=== PATIENT | male | born 1955 | race Caucasian/White ===

== ENCOUNTER 2020-04-13 07:03 | Outpatient (REF) | payer BC, SELFPAY ==
[2020-04-13 07:50] LABS: MANUAL DIFF FLAG NO
[2020-04-13 07:59] LABS: Basophils Percent Auto 0.6 % (0-2); Eosinophils Absolute Auto 0.1 X10*3/uL (0.0-0.4); Hematocrit 44.4 % (42-52); Hemoglobin 15.3 g/dl (14.0-18.0); Imm Gran Abs Auto 0.01 X10*3/uL (0.00-0.03); Imm Gran Pct Auto 0.2 % (0.0-0.4); Lymphocytes Absolute Auto 1.1 X10*3/uL (1.2-4.9); Lymphocytes Percent Auto 21.1 % (20-40); Mean Corpuscular HGB Conc 34.5 g/dl (31.0-36.0); Mean Corpuscular Hemoglobin 32.8 pg (27.0-33.0); Mean Corpuscular Volume 95.3 fL (80-98); Mean Platelet Volume 11.3 fL (9.4-12.4); Monocytes Absolute Auto 0.5 X10*3/uL (0.1-1.2); Monocytes Percent Auto 10.4 % (2-11); Neutrophils Absolute Auto 3.3 X10*3/uL (2.0-8.3); Neutrophils Percent Auto 65.7 % (45-73); Platelet Count 152 X10*3/uL (160-400); Red Blood Count 4.66 X10*6/uL (4.60-5.80); Red Cell Distribution Width 12.4 % (11.0-16.0); White Blood Count 5.1 X10*3/uL (4.8-10.8)
[2020-04-13 08:24] LABS: Alanine Aminotransferase 195 U/L (0-40); Albumin Level 4.3 g/dL (3.5-5.0); Alkaline Phosphatase 61 U/L (39-117); Anion Gap 12 (12-20); Aspartate Amino Transferase 110 U/L (5-37); Bilirubin Total 1.3 mg/dL (0.0-1.0); Blood Urea Nitrogen 21 mg/dL (9-16); Calcium 9.4 mg/dL (8.4-10.2); Carbon Dioxide 24 mmol/L (22-29); Chloride 109 mmol/L (96-108); Cholesterol 133 mg/dL; Estimated Glomerular Filt Rate > 60; Glucose Random 104 mg/dL (60-115); HDL Cholesterol 46 mg/dL; LDL Cholesterol Calculated 76 mg/dl; Potassium 4.7 mmol/l (3.3-5.1); Sodium 140 mmol/L (135-145); Total Protein 7.7 g/dL (6.5-8.0); Triglycerides 56 mg/dL
[2020-04-13 08:31] LABS: Estimated Average Glucose 94 mg/dL; Hemoglobin A1c % 4.9 %
[2020-04-13 08:46] LABS: Prostate Specific Antigen 2.39 ng/mL (<0.05-4.0); Thyroid Stimulating Hormone 0.67 mIU/mL (0.32-4.0)
[2020-04-13 18:02] LABS: T4 Thyroxine 10.6 ug/dL (4.5-12.0)
[2020-04-15 06:04] LABS: Folate 14.1 ng/mL (> or = 4.0); Vitamin B12 592 pg/mL (200-900)
== END 2020-04-13 07:04 | disposition home or self-care (01) ==
LOC: HO.LAB 07:03
PROVIDERS: PCP Internal Medicine; Visit Provider Internal Medicine
DX: Z00.00 Encounter for general adult medical examination without abnormal findings (principal); E66.9 Obesity, unspecified; I10 Essential (primary) hypertension; D12.6 Benign neoplasm of colon, unspecified; B18.2 Chronic viral hepatitis C; R73.01 Impaired fasting glucose; Z72.0 Tobacco use
CPT/HCPCS: 36415; 80053; 80061; 82607; 82746; 83036; 84153; 84436; 84443; 85025

== ENCOUNTER 2021-05-05 09:46 | Outpatient (REF) | payer BC, SELFPAY ==
--- NOTE | ~2021-05-05 | XR_ITS ---
EXAMINATION: XR LUMBOSACRAL SPINE CLINICAL INFORMATION: Low back pain COMPARISON: None TECHNIQUE: Three views of the lumbosacral spine. FINDINGS: 5 nonrib-bearing lumbar vertebral bodies are visualized. There is mild dextroscoliosis of the lumbar spine centered at L3. Also noted is minimal retrolisthesis of L2 on L3 and mild anterolisthesis of L3 on L4. Vertebral body heights are maintained throughout the lumbar spine. There is moderate narrowing of the L4/L5 and L5/S1 disc space heights. There are degenerative changes of the posterior elements of the lumbar spine. Sacroiliac joints are symmetric. Surgical clip projects over the left pelvis. Surgical clips of the right upper abdomen. XR/XR lumbar spine 2-3V IMPRESSION: Mild to moderate degenerative changes of the lumbar spine without compression deformity.
== END 2021-05-05 09:47 | disposition home or self-care (01) ==
LOC: HO.HMGCX 09:46
PROVIDERS: PCP Internal Medicine; Visit Provider Physician Assistant
DX: M54.50 Low back pain, unspecified (principal)
CPT/HCPCS: 72100

== ENCOUNTER 2021-07-15 07:37 | Day surgery (SDC) | payer BC, SELFPAY ==
--- NOTE | 2021-07-14 10:13 | P.CONAN_ITS ---
HPI - Anesthesia Eval Consult details Narrative: 65yo M for Colonoscopy PMFSH Active Problems Active Problems: All Active Problems (Updated 04/23/20 @ 10:14 by Tristian Smith MD) Chronic hepatitis C (Acute) Impaired glucose tolerance (Acute) Tobacco abuse (Acute) Hypertension (Acute) Obesity (BMI 30-39.9) (Acute) Past Medical History Medical History (Updated 04/23/20 @ 10:14 by Tristian Smith MD) Chronic hepatitis C Hypertension Impaired glucose tolerance Obesity (BMI 30-39.9) Tobacco abuse Tubular adenoma of colon Family History Family History (Updated 04/23/20 @ 06:23 by Lisa Melendrez [facility]) Father Lung cancer Mother Breast cancer Brother Substance abuse Surgical History Surgical History (Updated 04/22/20 @ 20:27 by Tristian Smith MD) H/O arthroscopy of right knee History of cholecystectomy Social History Social History Patient Tobacco Use Status: Never used Tobacco Use of substances other than those prescribed or required for medical reasons: No Advance Directives: No Advance Directives Information Provided: Yes Recently lost weight without trying: No Nutrition Risks: No Nutritional Risk Meds Allergies Allergy/AdvReac Type Severity Reaction Status Date / Time hydrochlorothiazide Allergy Unknown constipatio Verified 05/05/21 09:31 ns Home Medications Medication Instructions Recorded Confirmed Last Taken Type ibuprofen 200 mg 200 mg PO Q6H 04/23/20 05/05/21 Unknown History tablet (Advil) PRN Exam Exam Date and Time: July 14, 2021 1013 Assessment and Plan Assessment Anesthesia Assessment: Chart Reviewed
[2021-07-15 08:08] VITALS: BMI 37.6
[2021-07-15 08:26] VITALS: BP 136/86; PULSE 78; RESP 17; TEMP 36.7; O2SAT 97
[2021-07-15] MEDS: Lactated Ringers 1,000 ML 100 ML IVCONT (08:27)
--- NOTE | 2021-07-15 09:01 | MHC.SHP ---
Pre-Procedural Eval Section A Date of Service: 07/15/21 The patient is an INPATIENT: No Changes since office visit: No Cold of Flu in the past 2 weeks, No New Medical Problems, No Changes in Medication and No Patient answered all questions The History & Physical has been completed within 30 days and I have reviewed it.: Yes Section B Chief Complaint: Screening Allergies: Allergies Allergy/AdvReac Type Severity Reaction Status Date / Time hydrochlorothiazide Allergy Unknown constipatio Verified 05/05/21 09:31 ns Plan I have reviewed the history and physical and performed a pertinent physical examination on my patient. No changes have occurred unless specified.
--- NOTE | 2021-07-15 09:40 | PM.OP ---
Brief Operative Note Date of Service: 07/15/21 Pre-op diagnosis: screening Post-op diagnosis: same (colon polyp) Procedure: colonoscopy Surgeon: Uday Chen Anesthesia: MAC Was an Senior International Tax Manager used for this Procedure?: No Estimated blood loss (mL): 2.0 Pathology: other (polyp cecum) Condition: stable Disposition: PACU
[2021-07-15 09:42] VITALS: BP 105/73; PULSE 64; RESP 16; TEMP 36.7; O2SAT 95
[2021-07-15 09:57] VITALS: BP 123/76; PULSE 68; RESP 17; TEMP 36.7; O2SAT 97
--- NOTE | 2021-07-15 10:12 | OP_ITS ---
SURGEON: Uday Chen MD INDICATIONS: Colon cancer screening and prior history of adenomatous colon polyps. PREOPERATIVE DIAGNOSIS: POSTOPERATIVE DIAGNOSIS: PROCEDURE PERFORMED: ESTIMATED BLOOD LOSS: COMPLICATIONS: ANESTHESIA: ASSISTANTS: SPECIMENS: PROCEDURE: Colonoscopy to the terminal ileum with snare polypectomy. MEDICATIONS: Monitored anesthesia care. DESCRIPTION OF PROCEDURE: History and physical performed. The risks and benefits of the procedure were explained to the patient. Informed consent was obtained. The patient was placed in the left lateral decubitus position. A digital rectal exam was performed and was found to be normal. The Olympus pediatric video colonoscope was introduced into the rectum and advanced to the cecum without difficulty. The cecum was identified by transillumination, palpation, and identification of ileocecal valve. Examination was performed. The scope was removed. He tolerated the procedure well and was returned to recovery area in stable condition. FINDINGS: The terminal ileum was normal. The visualized colonic mucosa was normal. There was a large amount of liquid stool limiting sensitivity examination for detection of small polyps. This was washed and suctioned as best possible. A single polyp in the cecum measuring approximately 6 mm was removed with a cold snare and recovered via suction. No other polyps were identified. Retroflexed examination showed internal hemorrhoids. IMPRESSION: Colon polyp. RECOMMENDATION: Follow up the biopsy results. MD MAYANK Bernard/ANNABELLE / [id number]
== END 2021-07-15 10:30 | disposition home or self-care (01) ==
PROVIDERS: PCP Internal Medicine; Visit Provider Internal Medicine Gastroenterology
PROC: 0DJD8ZZ Inspection of Lower Intestinal Tract, Via Natural or Artificial Opening Endoscopic (ICD-10-PCS; CPT 45378; principal; 2021-07-15 09:10)
DX: Z12.11 Encounter for screening for malignant neoplasm of colon (principal); Z86.010 Personal history of colon polyps; D12.0 Benign neoplasm of cecum; K64.8 Other hemorrhoids; I10 Essential (primary) hypertension; B18.2 Chronic viral hepatitis C; Z79.899 Other long term (current) drug therapy; Z88.8 Allergy status to other drugs, medicaments and biological substances; Z90.49 Acquired absence of other specified parts of digestive tract; F17.290 Nicotine dependence, other tobacco product, uncomplicated
CPT/HCPCS: 45385; 88305

== ENCOUNTER 2022-06-25 05:58 | Outpatient (REF) | payer MEDICARE, SELFPAY ==
[2022-06-25 06:06] LABS: MANUAL DIFF FLAG NO
[2022-06-25 07:26] LABS: Basophils Percent Auto 0.6 % (0-2); Eosinophils Absolute Auto 0.1 X10*3/uL (0.0-0.4); Eosinophils Percent Auto 2.4 % (0-4); Hematocrit 42.7 % (42.0-52.0); Hemoglobin 14.8 g/dl (14.0-18.0); Imm Gran Abs Auto 0.01 X10*3/uL (0.00-0.03); Imm Gran Pct Auto 0.2 % (0.0-0.4); Lymphocytes Absolute Auto 0.9 X10*3/uL (1.2-4.9); Lymphocytes Percent Auto 17.6 % (20-40); Mean Corpuscular HGB Conc 34.7 g/dl (31.0-36.0); Mean Corpuscular Hemoglobin 32.1 pg (27.0-33.0); Mean Corpuscular Volume 92.6 fL (80.0-98.0); Mean Platelet Volume 11.3 fL (9.4-12.4); Monocytes Absolute Auto 0.5 X10*3/uL (0.1-1.2); Monocytes Percent Auto 9.6 % (2-11); Neutrophils Absolute Auto 3.5 x10*3/uL (2.0-8.3); Neutrophils Percent Auto 69.6 % (45-73); Platelet Count 155 X10*3/uL (160-400); Red Blood Count 4.61 X10*6/uL (4.60-5.80); Red Cell Distribution Width 12.7 % (11.0-16.0)
[2022-06-25 07:57] LABS: Estimated Average Glucose 88 mg/dL; Hemoglobin A1c % 4.7 %
[2022-06-25 08:09] LABS: Alanine Aminotransferase 145 U/L (0-40); Albumin Level 4.2 g/dL (3.5-5.0); Alkaline Phosphatase 65 U/L (39-117); Anion Gap 11 (12-20); Aspartate Amino Transferase 89 U/L (5-37); Bilirubin Total 1.2 mg/dL (0.0-1.0); Blood Urea Nitrogen 24 mg/dL (9-16); Calcium 9.6 mg/dL (8.4-10.2); Carbon Dioxide 24 mmol/L (22-29); Chloride 110 mmol/L (96-108); Cholesterol 164 mg/dL; Estimated Glomerular Filt Rate > 60; Glucose Random 106 mg/dL (60-115); HDL Cholesterol 56 mg/dL; LDL Cholesterol Calculated 94 mg/dl; Potassium 4.6 mmol/L (3.3-5.1); Prostate Specific Antigen Scr 3.82 ng/mL (<0.05-4.0); Sodium 140 mmol/L (135-145); Thyroid Stimulating Hormone 1.23 uIU/mL (0.32-4.0); Total Protein 7.4 g/dL (6.5-8.0); Triglycerides 71 mg/dL
[2022-06-25 08:25] LABS: Folate 8.6 ng/mL (> or = 4.0); Vitamin B12 517 pg/mL (200-900)
[2022-06-25 10:18] LABS: Free T4 (Free Thyroxine) 0.91 ng/dL (0.71-1.85)
[2022-06-26 13:59] LABS: HCV RNA PCR Qn 6.68 Log IU/mL (NOT DETECTED)
[2022-07-04 10:49] LABS: HCV Genotype LiPA 1b
== END 2022-06-25 05:59 | disposition home or self-care (01) ==
LOC: HO.LAB 05:58
PROVIDERS: PCP Internal Medicine; Visit Provider Internal Medicine
DX: Z12.5 Encounter for screening for malignant neoplasm of prostate (principal); I10 Essential (primary) hypertension; E78.00 Pure hypercholesterolemia, unspecified; R73.02 Impaired glucose tolerance (oral)
CPT/HCPCS: 36415; 80053; 80061; 82607; 82746; 83036; 84153; 84439; 84443; 85025; 87522; 87902

== ENCOUNTER 2023-08-18 10:02 | Outpatient (AMB) | payer MEDICARE, SELFPAY ==
[2023-08-18 10:36] VITALS: BP 140/78; PULSE 68; O2SAT 98; BMI 36.9
--- NOTE | 2023-08-18 10:36 | AM.OFFVISMDC ---
Intake Vital Signs 08/18/23 10:36 Height 5 ft 9 in Weight 250 lb BMI 36.9 BP 140/78 H Blood Pressure Location Lt brachial Position Sitting Pulse 68 Pulse Source Pulse Oximeter Pulse Oximetry (%) 98 Oxygen Delivery Method Room Air Intake Visit Reasons: physical Allergies hydrochlorothiazide Allergy (Unknown, Verified 08/18/23 10:37) constipations dexamethasone Adverse Reaction (Severe, Verified 08/18/23 10:37) blurred vision Medication List - Last Reconciled 08/18/23 by Tristian Smith MD ibuprofen (Advil) 200 mg PO Q6H PRN lisinopril 20 mg PO DAILY HPI physical HPI Details 67-year-old obese male smoker with hypertension impaired glucose tolerance chronic hepatitis-C last seen in February 2022. Patient's colonoscopy is up-to-date June 2021. Patient was seen by the nurse practitioner last year in July for annual well visit BP at home 131/77 OH 72 PFSH Medical History Chronic hepatitis C Hypertension Impaired glucose tolerance Obesity (BMI 30-39.9) Tobacco abuse Tubular adenoma of colon Surgical History H/O arthroscopy of right knee History of cholecystectomy Family History (Updated 08/18/23 @ 10:37 by Alyce Stein [facility]) Father Lung cancer Mother Breast cancer Brother Substance abuse Other Mental health disorder Social History (Updated 08/18/23 @ 10:55 by Tristian Smith MD) Housing: House Alcohol intake: former Comment: 1997 quit. Patient Tobacco Use Status: Current everyday Tobacco user Tobacco use type: Cigar Cigarettes Per Day: 2 e-Cigarette/Vaping Use: Never Used Second Hand Smoke Exposure: Yes Current occupational status: retired Cognitive needs: No Hearing needs: No Vision needs: Yes Questionnaire Medicare Wellness Checkup [age] What gender do you identify with?: male During the past 4 weeks, how much have you been bothered by emotional problems such as feeling anxious, depressed, irritable, sad or downhearted, and blue?: not at all During the past 4 weeks, has your physical & emotional health limited your social activities with family, friends, neighbors, or groups?: not at all During the past 4 weeks, how much bodily pain have you generally had?: moderate pain During the past 4 weeks, was someone available to help you if you needed & wanted help?: yes, as much as I wanted During the past 4 weeks, what was the hardest physical activity you could do for at least 2 minutes?: heavy Can you get to places out of walking distance without help? (For eg., can you travel alone on buses, taxis or drive your car?): Yes Can you go shopping for groceries or clothes without someone's help?: Yes Can you prepare your own meals?: Yes Can you do your housework without help?: Yes Because of any health problems, do you need the help of another person with your personal care needs such as eating, bathing, dressing or getting around the house?: No Can you handle your own money without help?: Yes During the past 4 weeks, how would you rate your health in general?: very good During the past 4 weeks how have things been going for you?: pretty well Are you having difficulties driving your car?: no Do you always fasten your seat belt when you are in a car?: yes, usually During past 4 weeks, have you been bothered by the following: never: Falling or dizzy when standing up, Sexual problems?, Trouble eating well?, Teeth or denture problems?, Problems using the telephone? and Tiredness or fatigue? Have you fallen 2 or more times in the past year?: No Are you afraid of falling?: No Are you a smoker?: yes, but I'm not ready to quit (Cigars) During the past 4 weeks, how many drinks of wine, beer, or other alcoholic beverages did you have?: no alcohol at all Do you exercise for about 20 minutes 3 or more times a week?: no, I usually do not exercise this much Have you been given information to help with the following?: no: Hazards in your house that might hurt you? and no: Keeping track of your medications? How often do you have trouble taking medicines the way you have been told to take them?: I always take medicine as prescribed How confident are you that you can control & manage most of your health problems?: very confident What is your race?: White PHQ-9 Over the last 2 weeks, how often have you been bothered by any of the following problems? 1. Little interest or pleasure in doing things: not at all 2. Feeling down, depressed, or hopeless: not at all 3. Trouble falling or staying asleep, or sleeping too much: not at all 4. Feeling tired or having little energy: not at all 5. Poor appetite or overeating: not at all 6. Feeling bad about yourself - or that you are a failure or have let yourself or your family down: not at all 7. Trouble concentrating on things, such as reading the newspaper or watching television: not at all 8. Moving or speaking so slowly that other people could have noticed. Or the opposite - being so fidgety or restless that you have been moving around a lot more than usual: not at all 9. Thoughts that you would be better off or of hurting yourself in some way: not at all Total score: 0 Depression Screening Interpretation: Negative Depression Screening Done: Yes [id number] - PHQ-9 Billing: Yes Source: Developed by Drs. Derick Wooten, Jennifer Xiao, Donell Vera and colleagues, with an educational claude from [facility]. Thrive Questionnaire Date Thrive assessed: 08/18/23 I am a: Patient What is your living situation today?: I have a steady place to live Within the past 12 months, did the food you bought not last and you didn't have the money to get more?: Never true Within the past 12 months, did you worry whether your food would run out before you got money to buy more?: Never true Do you have trouble paying for medicines?: No Do you have trouble getting transportation to medical appointments?: No Do you have trouble paying your heating and electricity bill?: No Do you have trouble taking care of your child, family member or friend?: No Do you have trouble with day-to-day activities such as bathing, preparing meals, shopping, managing finances, etc.?: No Are you currently unemployed and looking for a job?: No Are you interested in more education?: No Currently or been in a relationship where the following occur: no concerns reported THRIVE Score: 0 MIROSLAVA-7 AMB Questionnaire MIROSLAVA-7 Date MIROSLAVA - 7 assessed: 08/18/23 Feeling nervous, anxious, or on edge: 0 = Not at all Not being able to stop or control worryin = Not at all Worrying too much about different things: 0 = Not at all Trouble relaxin = Not at all Being so restless that it is hard to sit still: 0 = Not at all Becoming easily annoyed or irritable: 0 = Not at all Feeling afraid as if something awful might happen: 0 = Not at all Total MIROSLAVA-7 score (0-4 normal; 5-9 mild; 10-14 moderate; 15-21 severe): 0 Source: Developed by Drs. Derick Wooten, Jennifer Xiao, Donell Vera and colleagues, with an educational claude from [facility]. MIROSLAVA-7 Assessment Billing MIROSLAVA-7 Assessment Tool: MIROSLAVA-7 Assessment 83056 Review of Systems Const Denies poor appetite and Denies weakness Eyes Denies no additional complaints ENT Reports Normal hearing present, Denies dizziness, Denies nasal congestion, Denies tinnitus and Denies sore throat Card Denies chest pain, Denies syncope, Denies rapid heart rate and Denies dyspnea Resp Denies cough and Denies dyspnea GI Denies change in stool character, Reports constipation, Denies diarrhea, Denies nausea and Denies vomiting Denies dysuria and Denies urinary frequency Neuro Reports Normal hearing present, Denies confusion, Denies dizziness, Denies syncope and Denies weakness Psych Denies confusion Physical Exam Vital Signs: Last Vital Signs Pulse 68 08/18/23 10:36 BP 140/78 H 08/18/23 10:36 Pulse Ox 98 08/18/23 10:36 Oxygen Delivery Method Room Air 08/18/23 10:36 BMI result Body Mass Index 36.9 Const General: No confusion Orientation/consciousness: No confusion HEENT Other: impacted cerument L ear Head: Yes normocephalic Ears: external ears normal Face and sinus: Yes normal facial exam Mouth: moist mucous membranes Throat: Yes tonsils normal Eyes Conjunctivae: conjunctivae normal Pupils: Equal, round and reactive pupils present and Pupil accommodation reflex normal Direct Ophthalmoscopy: normal light reflex Neck Neck: No lymphadenopathy Thyroid: Thyroid normal Chest Chest palpation & inspection: normal inspection of the chest Resp Effort & Inspection: normal respiratory effort and no audible wheezes Auscultation: clear to auscultation bilaterally, no crackles, no wheezes and lung sounds not diminished Cardio Rate: regular rate Rhythm: regular rhythm Peripheral pulses: radial pulses present and dorsalis pedis present GI Other: guaiac neg, prostate N Palpation (GI): no masses Auscultation: normal bowel sounds and normoactive bowel sounds Rectal Exam - Male: Yes deferred Other: knee tender on R medial knee and L pain on the anterior knee area Male General Exam: Yes normal external exam Skin General skin exam: no rashes or lesions noted Rashes: no rashes Neuro General: No confusion Cranial nerves: Yes Equal, round and reactive pupils present and Yes Normal hearing present Cognition (Neuro): normal cognition Gait exam (Neuro): Normal gait present Motor exam (neuro): 5/5 motor strength present throughout Deep tendon reflexes (DTR's): Right brachioradialis reflex intensity grade: 2+, Left brachioradialis reflex intensity grade: 2+, Right patellar reflex intensity grade: 2+ and Left patellar reflex intensity grade: 2+ Extrem General: No edema Assessment & Plan Assessment & Plan (1) Annual physical exam: Code(s): Z00.00 - Encounter for general adult medical examination without abnormal findings Plan: Eat healthy, keep active and keep well hydrated (2) Obesity (BMI 30-39.9): Code(s): E66.9 - Obesity, unspecified Plan: Continue with diet and exercise (3) Tobacco abuse: Comment: October 2014 Code(s): Z72.0 - Tobacco use Plan: Patient is strongly advised to stop! (4) Hypertension: Code(s): I10 - Essential (primary) hypertension Qualifiers: Hypertension type: essential hypertension Qualified Code(s): I10 - Essential (primary) hypertension Plan: Continue with blood pressure medication. Decrease salt intake and exercise on lisinopril 20 mg once a day (5) Impaired glucose tolerance: Code(s): R73.02 - Impaired glucose tolerance (oral) Plan: Decrease the amount of carbohydrate intake, pasta, bread, rice and potatoes are all sugar and that is aside from all the sweet stuff, remember that fruits are good but they are Sweet also. (6) Chronic hepatitis C: Comment: Declined therapy January 2019 Code(s): B18.2 - Chronic viral hepatitis C Qualifiers: Hepatic coma status: without hepatic coma Qualified Code(s): B18.2 - Chronic viral hepatitis C Plan: Discussed with the patient on treatment for hepatitis-C. Patient is still hesitant but discussed the concerns about hepatoma risk (7) Bilateral knee pain: Code(s): M25.561 - Pain in right knee; M25.562 - Pain in left knee Qualifiers: Chronicity: acute Qualified Code(s): M25.561 - Pain in right knee; M25.562 - Pain in left knee Plan: X-ray has been requested Orders: Orders Comprehensive Met. Panel Today R73.02 - Impaired glucose tolerance (oral) Lipid Panel Today B18.2 - Chronic viral hepatitis C, E78.00 - Pure hypercholesterolemia, unspecified Complete Blood Count Auto Diff Today B18.2 - Chronic viral hepatitis C Vitamin B12 and Folate Today B18.2 - Chronic viral hepatitis C Prostate Specific Antigen Scr Today B18.2 - Chronic viral hepatitis C Free T4 (Free Thyroxine) Today B18.2 - Chronic viral hepatitis C Hemoglobin A1c Today R73.02 - Impaired glucose tolerance (oral) Thyroid Stimulating Hormone Today B18.2 - Chronic viral hepatitis C XR knee standing BI Today M25.561 - Pain in right knee, M25.562 - Pain in left knee Quality Reporting (2020) Depression/Bipolar (159/160/161/177) PHQ-9: Total score: 0 Coding Level of Care Code Medicare Subsequent (G0439) Diagnoses Annual physical exam Z00.00 Obesity (BMI 30-39.9) E66.9 Tobacco abuse Z72.0 Essential hypertension I10 Hypertension type: essential hypertension Impaired glucose tolerance R73.02 Chronic hepatitis C without hepatic coma B18.2 Hepatic coma status: without hepatic coma Acute pain of both knees M25.561; M25.562 Chronicity: acute Additional Codes MIROSLAVA-7 Assessment Billing - MIROSLAVA-7 Assessment Tool: MIROSLAVA-7 Assessment [id number] ([id number])
== END 2023-08-18 11:13 | disposition home or self-care (01) ==
PROVIDERS: Visit Provider Internal Medicine
DX: Z00.00 Encounter for general adult medical examination without abnormal findings (principal); B18.2 Chronic viral hepatitis C; E66.9 Obesity, unspecified; Z68.36 Body mass index [BMI] 36.0-36.9, adult; Z72.0 Tobacco use; I10 Essential (primary) hypertension; R73.02 Impaired glucose tolerance (oral); M25.561 Pain in right knee; M25.562 Pain in left knee
CPT/HCPCS: G0439

== ENCOUNTER 2025-02-13 11:14 | Outpatient (AMB) | payer MEDICARE, SELFPAY ==
--- NOTE | 2025-02-13 11:20 | MHC.PC.OV ---
Intake Visit Reasons: Wellness visit Allergies hydrochlorothiazide Allergy (Unknown, Verified 08/18/23 10:37) constipations dexamethasone Adverse Reaction (Severe, Verified 08/18/23 10:37) blurred vision Tobacco use date assessed: 03/24/22 [facility] Medical History Chronic hepatitis C Hypertension Impaired glucose tolerance Obesity (BMI 30-39.9) Tobacco abuse Tubular adenoma of colon Surgical History H/O arthroscopy of right knee History of cholecystectomy Family History (Updated 08/18/23 @ 10:37 by Alyce Stein CMA) Father Lung cancer Mother Breast cancer Brother Substance abuse Other Mental health disorder Social History (Updated 08/18/23 @ 10:55 by Tristian Smith MD) Housing: House Alcohol intake: former Comment: 1997 quit. Patient Tobacco Use Status: Current everyday Tobacco user Tobacco use type: Cigar Cigarettes Per Day: 2 e-Cigarette/Vaping Use: Never Used Second Hand Smoke Exposure: Yes Current occupational status: retired Cognitive needs: No Hearing needs: No Vision needs: Yes Questionnaire Thrive Questionnaire Date Thrive assessed: 08/18/23 MIROSLAVA-7 AMB Questionnaire MIROSLAVA-7 Date MIROSLAVA - 7 assessed: 08/18/23 Source: Developed by Drs. Derick Wooten, Jennifer Xiao, Donell Vera and colleagues, with an educational claude from [employer]. Physical exam (Primary Care) Tobacco/Smoking Status: Tobacco use Status Tobacco use date assessed 03/24/22 08/17/22 13:59 Patient Tobacco Use Status Current everyday Tobacco 08/18/23 10:55 Tobacco use type Cigar 08/18/23 10:55 e-Cigarette/Vaping Use Never Used 08/18/23 10:55 Thrive Assessment: Date of Thrive Assessment Date Thrive assessed 08/18/23 08/18/23 10:43 Coding
[2025-02-13 11:23] VITALS: BP 136/70; PULSE 77; O2SAT 98; BMI 38.4
--- NOTE | 2025-02-13 11:23 | A.OFFVIS_ITS ---
Intake Vital Signs 02/13/25 11:23 Height 5 ft 9 in Weight 260 lb BMI 38.4 BP 136/70 Blood Pressure Location Lt brachial Position Sitting Pulse 77 Pulse Source Pulse Oximeter Pulse Oximetry (%) 98 Oxygen Delivery Method Room Air Intake Visit Reasons: Wellness visit Allergies hydrochlorothiazide Allergy (Unknown, Verified 02/13/25 11:23) constipations dexamethasone Adverse Reaction (Severe, Verified 02/13/25 11:23) blurred vision Medication List - Last Reconciled 02/13/25 by Tristian Smith MD ibuprofen (Advil) 200 mg PO Q6H PRN lisinopril 20 mg PO DAILY HPI Wellness visit HPI Details [place] [facility] Dr. Chen gastroenterology [facility] Medical History Chronic hepatitis C Hypertension Impaired glucose tolerance Obesity (BMI 30-39.9) Tobacco abuse Tubular adenoma of colon Surgical History H/O arthroscopy of right knee History of cholecystectomy Family History (Updated 08/18/23 @ 10:37 by Alyce Stein [facility]) Father Lung cancer Mother Breast cancer Brother Substance abuse Other Mental health disorder Social History (Updated 02/13/25 @ 11:59 by Tristian Smith MD) Housing: House Alcohol intake: former Comment: 1997 quit. Patient Tobacco Use Status: Current everyday Tobacco user Tobacco use type: Cigar Cigarettes Per Day: 2 Years Smoked: 1/1/2 cigars in a day e-Cigarette/Vaping Use: Never Used Second Hand Smoke Exposure: Yes Current occupational status: retired Cognitive needs: No Hearing needs: No Vision needs: Yes Questionnaire Medicare Wellness Checkup [age] 65-70 What gender do you identify with?: male During the past 4 weeks, how much have you been bothered by emotional problems such as feeling anxious, depressed, irritable, sad or downhearted, and blue?: not at all During the past 4 weeks, has your physical & emotional health limited your social activities with family, friends, neighbors, or groups?: not at all During the past 4 weeks, how much bodily pain have you generally had?: moderate pain During the past 4 weeks, was someone available to help you if you needed & wanted help?: yes, quite a bit During the past 4 weeks, what was the hardest physical activity you could do for at least 2 minutes?: very heavy Can you get to places out of walking distance without help? (For eg., can you travel alone on buses, taxis or drive your car?): Yes Can you go shopping for groceries or clothes without someone's help?: Yes Can you prepare your own meals?: Yes Can you do your housework without help?: Yes Because of any health problems, do you need the help of another person with your personal care needs such as eating, bathing, dressing or getting around the house?: No Can you handle your own money without help?: Yes During the past 4 weeks, how would you rate your health in general?: good During the past 4 weeks how have things been going for you?: pretty well Are you having difficulties driving your car?: no Do you always fasten your seat belt when you are in a car?: yes, usually During past 4 weeks, have you been bothered by the following: never: Falling or dizzy when standing up, Sexual problems?, Trouble eating well?, Teeth or denture problems?, Problems using the telephone? and Tiredness or fatigue? Have you fallen 2 or more times in the past year?: No Are you afraid of falling?: No Are you a smoker?: yes, but I'm not ready to quit During the past 4 weeks, how many drinks of wine, beer, or other alcoholic beverages did you have?: no alcohol at all Do you exercise for about 20 minutes 3 or more times a week?: no, I usually do not exercise this much Have you been given information to help with the following?: no: Hazards in your house that might hurt you? and no: Keeping track of your medications? How often do you have trouble taking medicines the way you have been told to take them?: I always take medicine as prescribed How confident are you that you can control & manage most of your health problems?: very confident What is your race?: White PHQ-9 Over the last 2 weeks, how often have you been bothered by any of the following problems? 1. Little interest or pleasure in doing things: not at all 2. Feeling down, depressed, or hopeless: not at all 3. Trouble falling or staying asleep, or sleeping too much: not at all 4. Feeling tired or having little energy: not at all 5. Poor appetite or overeating: not at all 6. Feeling bad about yourself - or that you are a failure or have let yourself or your family down: not at all 7. Trouble concentrating on things, such as reading the newspaper or watching television: not at all 8. Moving or speaking so slowly that other people could have noticed. Or the opposite - being so fidgety or restless that you have been moving around a lot more than usual: not at all 9. Thoughts that you would be better off or of hurting yourself in some way: not at all Total score: 0 Depression Screening Interpretation: Negative Depression Screening Done: Yes 23361 - PHQ-9 Billing: Yes Source: Developed by Drs. Derick Wooten, Jennifer Xiao, Donell Vera and colleagues, with an educational claude from [employer]. Thrive Questionnaire Date Thrive assessed: 02/13/25 I am a: Patient What is your living situation today?: I have a steady place to live Within the past 12 months, did the food you bought not last and you didn't have the money to get more?: Never true Within the past 12 months, did you worry whether your food would run out before you got money to buy more?: Never true Do you have trouble paying for medicines?: No Do you have trouble getting transportation to medical appointments?: No Do you have trouble paying your heating and electricity bill?: No Do you have trouble taking care of your child, family member or friend?: No Do you have trouble with day-to-day activities such as bathing, preparing meals, shopping, managing finances, etc.?: No Are you currently unemployed and looking for a job?: No Are you interested in more education?: No Currently or been in a relationship where the following occur: No concerns reported THRIVE Score: 0 MIROSLAVA-7 AMB Questionnaire MIROSLAVA-7 Date MIROSLAVA - 7 assessed: 02/13/25 Feeling nervous, anxious, or on edge: 0 = Not at all Not being able to stop or control worryin = Not at all Worrying too much about different things: 0 = Not at all Trouble relaxin = Not at all Being so restless that it is hard to sit still: 0 = Not at all Becoming easily annoyed or irritable: 0 = Not at all Feeling afraid as if something awful might happen: 0 = Not at all Total MIROSLAVA-7 score (0-4 normal; 5-9 mild; 10-14 moderate; 15-21 severe): 0 Source: Developed by Drs. Derick Wooten, Jennifer Xiao, Donell Vera and colleagues, with an educational claude from [employer]. MIROSLAVA-7 Assessment Billing MIROSLAVA-7 Assessment Tool: MIROSLAVA-7 Assessment 30450 Review of Systems Const Denies poor appetite and Denies weakness Eyes Denies no additional complaints ENT Reports Normal hearing present, Denies dizziness, Denies nasal congestion, Denies tinnitus and Denies sore throat Card Denies chest pain, Denies syncope, Denies rapid heart rate and Denies dyspnea Resp Denies cough and Denies dyspnea GI Denies change in stool character, Reports constipation, Denies diarrhea, Denies nausea and Denies vomiting Denies dysuria and Denies urinary frequency Neuro Reports Normal hearing present, Denies confusion, Denies dizziness, Denies syncope and Denies weakness Psych Denies confusion Physical Exam Vital Signs: Last Vital Signs Pulse 77 02/13/25 11:23 BP 136/70 02/13/25 11:23 Pulse Ox 98 02/13/25 11:23 Oxygen Delivery Method Room Air 02/13/25 11:23 BMI result Body Mass Index 38.4 Const General: No confusion Orientation/consciousness: No confusion HEENT Head: Yes normocephalic Ears: external ears normal and TM's normal bilaterally Face and sinus: Yes normal facial exam Mouth: moist mucous membranes Throat: Yes tonsils normal Eyes Conjunctivae: conjunctivae normal Pupils: Equal, round and reactive pupils present and Pupil accommodation reflex normal Direct Ophthalmoscopy: normal light reflex Neck Neck: No lymphadenopathy Thyroid: Thyroid normal Chest Chest palpation & inspection: normal inspection of the chest Resp Effort & Inspection: normal respiratory effort and no audible wheezes Auscultation: clear to auscultation bilaterally, no crackles, no wheezes and lung sounds not diminished Cardio Rate: regular rate Rhythm: regular rhythm Peripheral pulses: radial pulses present and dorsalis pedis present GI Other: guaiac negative prostate N Palpation (GI): no masses Auscultation: normal bowel sounds and normoactive bowel sounds Male General Exam: Yes normal external exam Skin General skin exam: no rashes or lesions noted Rashes: no rashes Neuro General: No confusion Cranial nerves: Yes Equal, round and reactive pupils present and Yes Normal hearing present Cognition (Neuro): normal cognition Gait exam (Neuro): Normal gait present Motor exam (neuro): 5/5 motor strength present throughout Deep tendon reflexes (DTR's): Right brachioradialis reflex intensity grade: 2+, Left brachioradialis reflex intensity grade: 2+, Right patellar reflex intensity grade: 2+ and Left patellar reflex intensity grade: 2+ Extrem General: No edema Assessment & Plan Assessment & Plan (1) Medicare annual wellness visit, subsequent: Code(s): Z00.00 - Encounter for general adult medical examination without abnormal findings Plan: Patient is advised to eat healthy, keep well hydrated, keep active and have adequate sleep. (2) Chronic hepatitis C: Comment: Declined therapy January 2019 Code(s): B18.2 - Chronic viral hepatitis C Qualifiers: Hepatic coma status: without hepatic coma Qualified Code(s): B18.2 - Chronic viral hepatitis C Plan: Again discussed with the patient regarding treatment. (3) Tobacco abuse: Comment: October 2014 Code(s): Z72.0 - Tobacco use Plan: Patient is strongly advised to stop smoking! (4) Hypertension: Code(s): I10 - Essential (primary) hypertension Qualifiers: Hypertension type: essential hypertension Qualified Code(s): I10 - Essential (primary) hypertension Plan: Continue with blood pressure medication. Decrease salt intake and exercise on lisinopril 20 mg once a day (5) Impaired glucose tolerance: Code(s): R73.02 - Impaired glucose tolerance (oral) Plan: Decrease the amount of carbohydrate intake, pasta, bread, rice and potatoes are all sugar and that is aside from all the sweet stuff, remember that fruits are good but they are Sweet also. Advised to get blood work (6) Obesity (BMI 30-39.9): Code(s): E66.9 - Obesity, unspecified Plan: Diet and exercise (7) Bilateral knee pain: Code(s): M25.561 - Pain in right knee; M25.562 - Pain in left knee Qualifiers: Chronicity: acute Qualified Code(s): M25.561 - Pain in right knee; M25.562 - Pain in left knee Plan History of Present Illness The patient is a 69-year-old male presenting for an annual wellness visit and physical examination. The patient has a history of obesity, with a noted weight gain of 10 pounds since July 2023. He attributes this to decreased physical activity, describing himself as a couch potato during this period. The patient has a history of hypertension and is currently managed on lisinopril 20 mg once daily. He has impaired glucose tolerance, and blood work has been advised to monitor this condition. The patient has chronic hepatitis C, and there was a discussion regarding the potential need for liver ultrasounds, which the patient declined. In June 2021, the patient underwent a colonoscopy which revealed a tubular adenoma. He has been advised to follow up with regular screenings as part of his preventative care. Health Maintenance - Colonoscopy in June 2021 with tubular adenoma finding, advised regular follow-up screenings - Blood work advised for monitoring impaired glucose tolerance - Vaccinations up to date, including shingles, tetanus, and pneumonia vaccines Social History - Smoking: Patient smokes cigars, currently reduced to one and a half cigars per day - Alcohol: Patient has abstained from alcohol for 26 years - Physical activity: Engages in carpentry projects, but reports periods of inactivity contributing to weight gain - Diet: Consumes five 16.9-ounce bottles of water daily and a morning coffee Review of Systems - General: Denies fever, weight loss, or fatigue - Cardiovascular: Denies chest pain, palpitations, or dyspnea on exertion - Respiratory: Denies cough, wheezing, or shortness of breath - Gastrointestinal: Denies nausea, vomiting, or changes in bowel habits - Genitourinary: Denies dysuria or hematuria, reports nocturia once per night - Neurological: Denies dizziness, headaches, or syncope Physical Exam General: Cooperative, healthy appearing, comfortable, no acute distress and well developed Orientation: Patient oriented x3 Limitations: No limitations Head: Normal to inspection Ears: Hearing grossly normal bilaterally, some earwax noted but not obstructive Nose: Normal external nose present Face and sinus: Normal facial exam Eyes: Appearance normal, both eyes and all related structures Neck: Normal visual inspection and Yes full ROM Respiratory: Normal respiratory effort and able to speak in complete sentences. Clear to auscultation bilaterally Cardiovascular: Regular rate and rhythm. Normal S1 and S2 GI: Normal to inspection. Soft to palpation and nontender Skin: No rashes or lesions noted Neuro: Patient oriented x3 Extremities: Normal to inspection, right knee pain noted, x-ray requested Results - Colonoscopy (June 2021): Tubular adenoma found Plan The patient was advised to continue managing hypertension with lisinopril 20 mg daily and to monitor blood pressure regularly. For impaired glucose tolerance, the patient was advised to undergo blood work to assess current glucose levels and to maintain a balanced diet and regular exercise. The patient was strongly advised to cease smoking cigars to improve overall health and reduce cardiovascular risk. A request for knee x-rays was made to evaluate persistent right knee pain, with the patient planning to coordinate this with upcoming blood work. Preventative care measures include maintaining up-to-date vaccinations, with recent completion of shingles, tetanus, and pneumonia vaccines. The patient was reminded of the importance of regular colonoscopy screenings following the finding of a tubular adenoma in 2021. Patient was informed and verbally consented to the use of an ambient scribe for clinic note documentation during this visit. Discussion Notes During the visit, I discussed with the patient the importance of managing hypertension with lisinopril and the need for regular blood pressure monitoring. We also talked about the necessity of blood work to monitor glucose levels due to impaired glucose tolerance and emphasized the benefits of a balanced diet and regular exercise. I strongly advised the patient to quit smoking cigars to reduce cardiovascular risks and improve overall health. We discussed the plan for knee x-rays to assess right knee pain, which the patient will coordinate with upcoming blood work. Preventative care measures were reviewed, including the completion of vaccinat ions and the need for regular colonoscopy screenings following the tubular adenoma finding in 2021. Patient Instructions - Continue taking lisinopril 20 mg daily for blood pressure management - Schedule and complete blood work to monitor glucose levels - Maintain a balanced diet and engage in regular physical activity - Quit smoking cigars to improve health - Arrange for knee x-rays to evaluate knee pain - Ensure vaccinations are up to date - Follow up with regular colonoscopy screenings Orders: Orders Comprehensive Met. Panel Today R73.02 - Impaired glucose tolerance (oral) Free T4 (Free Thyroxine) Today R73.02 - Impaired glucose tolerance (oral) Thyroid Stimulating Hormone Today R73.02 - Impaired glucose tolerance (oral) Vitamin B12 and Folate Today R73.02 - Impaired glucose tolerance (oral) Prostate Specific Antigen Scr Today R73.02 - Impaired glucose tolerance (oral) XR Knee Alonzo 1or 2V Today M25.561 - Pain in right knee, M25.562 - Pain in left knee Complete Blood Count Auto Diff Today R73.02 - Impaired glucose tolerance (oral) Hemoglobin A1c Today R73.02 - Impaired glucose tolerance (oral) Lipid Panel Today E78.00 - Pure hypercholesterolemia, unspecified, R73.02 - Impaired glucose tolerance (oral) Quality Reporting (2019) Depression/Bipolar (159/160/161/177) PHQ-9: Total score: 0 Coding Level of Care Code Medicare Subsequent (G0439) Diagnoses Medicare annual wellness visit, subsequent Z00.00 Chronic hepatitis C without hepatic coma B18.2 Hepatic coma status: without hepatic coma Tobacco abuse Z72.0 Essential hypertension I10 Hypertension type: essential hypertension Impaired glucose tolerance R73.02 Obesity (BMI 30-39.9) E66.9 Acute pain of both knees M25.561; M25.562 Chronicity: acute Additional Codes MIROSLAVA-7 Assessment Billing - MIROSLAVA-7 Assessment Tool: MIROSLAVA-7 Assessment 85144 ([id number]) PHQ-9 - 43871 - PHQ-9 Billing: Yes ([id number])
--- OUTSIDE RECORDS SUMMARY | 2025-02-13 12:46 | XMS_ITS | Clinical Summary ---
Author Organization [facility] Address [address] [place] [address] Care Team Providers Care Roll Shop Supervisor Name Role Phone Unavailable Primary Care Provider Unavailabl e Source Comments PLEASE NOTE, if this patient is a minor, it may be UNLAWFUL to discuss sensitive information that is contained in these records (such as FAMILY PLANNING, MENTAL HEALTH or SUBSTANCE ABUSE) with the minor patient's parent or other person without the patient's specific authorization.[facility] Immunizations Immunization Administration Dates Next Due Moderna COVID-19 Vaccine, re d cap blue label, 12+ Primary Series 10/21/2020,09/23/2020 Social History Tobacco Use Types Packs/Day Years Used Date Smoking Tobacco: Never Assessed Social Connections Answer Date Recorded Social Connections and Isolation 0 09/23/2020 Financial Resource Strain Answer Date R ecorded Financial Resource Strain 0 2020 Stress Answer Date Recorded Stress 0 09/23/2020 Physical Activity Answer Date Recorded Physical Activity 0 09/23/2020 Food Insecurity Answer Date Recorded Food 0 09/23/2020 Transportation Needs Answer Date Record ed Transportation 0 09/23/2020 Housing Stability Answer Date Recorded Housing 0 09/23/2020 Safety and Environment Answer Date Magdiel rded Safety 0 09/23/2020 Utilities Answer Date Recorded Utilities 0 09/23/2020 Employment Answer Date Recorded Employment 0 09/23/2020 Sex and Gender Information Value Date Recorded Sex Assigned at Not on file Legal Sex Male 7:03 AM PDT Gender Identity Not on file Sexual Orientation Not on file Plan of Treatment Health Maintenance Due Date Last Done Comments Diabetes Screening 1955 Hepatitis C Screening 1955 Lipid Screening 1956 Tobacco Screening 1955 Hypertension Screening (#1) 1974 CT Colonography 2001 Colonoscopy 2001 Colorectal Cancer Screening 2001 FIT/gFOBT 2001 Fecal DNA 2001 Flexible Sigmoidoscopy 2001 Imm-Zoster, Recombinant (1 of 2) 2006 Imm-Pneumococcal 50+ (2 of 2 - PCV) 01/26/201901/26 Abdominal Aortic Aneurysm Screening 2021 Falls Prevention 2021 Zdv-[id number]-30 (3 - season) 2024 021, 09/23/2020 Alcohol and Drug Screen 06/28/2024 Depression Annual Screen 06/28/2024 Imm-Influenza (#1) 2025 Imm-DTaP/Tdap/Td (2 - Td or Tdap) 01/30/2029 019 Insurance [employer] CROSS/XIOMY MEJIA
--- OUTSIDE RECORDS SUMMARY | 2025-02-13 12:46 | XMS_ITS | Patient Health Record ---
Author Organization [facility] Address [address] [place] [id number] Care Team Providers Care Counter Control Operator Name Role Phone Tristian Smith MD Primary Care Provider Uday Gray Jr Unavailable [phone] Allergies Allergen (clinical drug ingredient) Drug/Non Drug Allergy documented on EMR Reaction Allergy Type Onset Date Status hydrochlorothiazide Hydrochlorothiazide Unknown Drug Aller gy Active Reason For Referral No Information Medications Medication SIG (Take, Route, Frequency, Duration) Notes Start Date End Date Status Advil PRN Active MiraLax (colon prep) 17 GM/SCOOP mixed with Gatorade or Crystal Light Orally begin at 5:00 p.m. the day before the procedure for 1 day 06/30/2021 Active Multivitamin Active Lisinopril Active Immunizations Vaccine Route Administration Date Status Comme nts Influenza Unknown 04/10/2020 Administered Influenza Unknown 06/30/2021 Refused Social History Tobacco Use: Social History Observation Description Date Details (start date - stop date) Current Smoker NA - NA Tobacco Use/Smoking Question Answer Notes Patient is a current smoker Section Notes: pt smoke only cigars 2 cigars per day 2 cigars per day Problems Problem Type SNOMED Code ICD Code Onset Dates Problem Status W/U Status Risk Notes Problem 826959503 Special screenin g for malignant neoplasms, colon (Z12.11) Active confirmed Problem 560871035 Personal history of colonic polyps (Z86.010) Active confirmed Problem 496312509 Encounter for other preprocedural examination (Z01.818) Active confirmed Problem 392232177 Chronic hepatiti s C without hepatic coma (B18.2) Active confirmed Plan Of Treatment Future Test Test Name Order Date COLONOSCOPY 11/29/2013 COLONOSCOPY 05/06/2020 COLONOSCOPY 06/30/2021 Insurance Providers Payer Name Payer Address Payer Phone Subscriber Number Group Number Insured Name Patient Relationship to Insured Coverage Start Date Coverage End Date [facility] [address] [place] [address] [id number] MELCHOR VINCENT Self - patient is the insured Medical (General) History Medical History History ICD Code colonoscopy 10/26/14, negative for polyps, five-year followup recommended due to prior history of polyps chronic hepatitis C, genotyp e 1B, liver biopsy 05/2004, chronic viral hepatitis grade 1/4 stage 2/4. Patient has declined therapy. hypertension Surgical History Surgery Date(Month/Year) cholecystectomy knee surgery
== END 2025-02-13 12:17 | disposition home or self-care (01) ==
LOC: HO.HMCH 11:14
PROVIDERS: PCP Internal Medicine; Visit Provider Internal Medicine
DX: Z00.00 Encounter for general adult medical examination without abnormal findings (principal); B18.2 Chronic viral hepatitis C; E66.9 Obesity, unspecified; Z68.38 Body mass index [BMI] 38.0-38.9, adult; Z72.0 Tobacco use; I10 Essential (primary) hypertension; R73.02 Impaired glucose tolerance (oral); M25.561 Pain in right knee; M25.562 Pain in left knee

== ENCOUNTER → 2025-02-13 11:14 | Outpatient (BNVA) | payer MEDICARE, SELFPAY | PROVIDERS: PCP Internal Medicine; Visit Provider Internal Medicine | DX: Z00.00 Encounter for general adult medical examination without abnormal findings (principal); B18.2 Chronic viral hepatitis C; I10 Essential (primary) hypertension; E66.9 Obesity, unspecified; Z68.38 Body mass index [BMI] 38.0-38.9, adult; R73.02 Impaired glucose tolerance (oral); M25.561 Pain in right knee; M25.562 Pain in left knee; Z72.0 Tobacco use; Z71.3 Dietary counseling and surveillance | CPT/HCPCS: 96127 ==